=== PATIENT | male | born 1995 | race Caucasian/White ===

== ENCOUNTER 2017-07-21 19:37 | Emergency (ER) | payer OTHER ==
--- NOTE | 2017-07-21 20:33 | EDPHY ---
H & P Time Seen by Provider: 07/21/17 19:46 HPI/ROS: CHIEF COMPLAINT: Head injury HISTORY OF PRESENT ILLNESS: Patient is a 21-year-old male who presents emergency department after sustaining a head injury last week. He was skiing when he attempted a back flip in struck his head. It is unclear if he lost consciousness but he does state that he has had problems thinking after the incident. He has had a previous concussion. No nausea vomiting. No focal deficits. No neck or back pain. No abdominal pain. No chest pain. Patient's parents came to visit the night. Patient reports that he is drank numerous alcoholic beverages prior to their arrival. He now appeared intoxicated to his parents. They brought him to the emergency department for further evaluation. REVIEW OF SYSTEMS: My complete review of systems is negative except as mentioned in the HPI. Past Medical/Surgical History: Previous concussion Social history: The patient drinks alcohol. He smokes marijuana. He is a student at [employer]. Smoking Status: Never smoked Physical Exam: Vitals noted GENERAL: No acute distress, alert. Intoxicated appearing HEAD: No evidence of trauma. EYES: PERRLA, EOMI, normal to inspection. ENT: Airway intact, no dental or oral injury, no malocclusion, no hemotympanum , normal external examination. NECK: The trachea is midline. There is no crepitus. The C-spine is nontender. RESPIRATORY: Clear to auscultation bilaterally, no rales, rhonchi or wheezing. There is no crepitus or palpable rib fractures. CVS: Regular rate and rhythm, no rubs, murmurs, or gallops. ABDOMEN: Soft, nontender, nondistended, normal bowel sounds, no bruising or abrasions. Pelvis: Stable. No tenderness palpation. Hips full range of motion. BACK: Normal to inspection, no spinal tenderness, no spinal step off, no notable bruising or abrasions. SKIN: Normal color, warm, dry. No pallor or diaphoresis. EXTREMITIES: Right upper extremity: Atraumatic. No visible signs of trauma. No tenderness palpation. Neurovascular intact distally. Left upper extremity: Atraumatic. No visible signs of trauma. No tenderness palpation. Neurovascular intact distally. Right lower extremity: Atraumatic. No visible signs of trauma. No tenderness palpation. Neurovascular intact distally. Left lower extremity: Atraumatic. No visible signs of trauma. No tenderness palpation. Neurovascular intact distally. NEURO/PSYCH: Alert and oriented x 3, GCS 15, intoxicated, normal motor sensory exam. Constitutional: Initial Vital Signs Temperature (C) 36.6 C 07/21/17 19:43 Heart Rate 138 H 07/21/17 19:43 Respiratory Rate 20 07/21/17 19:43 Blood Pressure 131/89 H 07/21/17 19:43 O2 Sat (%) 98 07/21/17 19:43 Allergies/Adverse Reactions: No Known Allergies Allergy (Unverified 07/21/17 19:43) Home Medications: Medication Instructions Recorded NK [No Known Home Meds] 07/21/17 Medical Decision Making - Diagnostics Imaging Results: Imaging Impressions Head CT 07/21/17 20:10 Impression: No acute intracranial findings. Findings discussed with AVRIL GUERRA 07/21/2017 at 20:38. ED Course/Re-evaluation: In the emergency department I discussed possible etiologies with the patient and father. I answered all her questions. Head CT was ordered. Laboratory studies were ordered. 840: Head CT. Please refer the dictated report by the radiologist. I discussed case with Dr. Wagoner. No acute disease noted. CBC shows a mild anemia. Chemistry panel is unremarkable. Alcohol is 333. I discussed the results with the patient and his father. I discussed the diagnosis of concussion and gave concussion precautions. Father feels comfortable taking the patient home. He is given warnings prior to leaving. He will return with worsening symptoms. His father will stay with him. Differential Diagnosis: My differential includes but is not limited to alcohol intoxication, concussion , subarachnoid hemorrhage, subdural hematoma, epidural hematoma, drug use - Data Points Laboratory Results: Laboratory Results 07/21/17 20:10 07/21/17 20:10 07/21/17 07/21/17 20:10 20:10 WBC 5.91 10^3/uL 10^3/uL (3.80-9.50) RBC 3.91 10^6/uL L 10^6/uL (4.40-6.38) Hgb 15.1 g/dL g/dL (13.7-17.5) Hct 39.6 % L % (40.0-51.0) MCV 101.3 fL H fL (81.5-99.8) MCH 38.6 pg H pg (27.9-34.1) MCHC 38.1 g/dL H g/dL (32.4-36.7) RDW 11.4 % L % (11.5-15.2) Plt Count 196 10^3/uL 10^3/uL (150-400) MPV 10.0 fL fL (8.7-11.7) Neut % (Auto) 38.2 % L % (39.3-74.2) Lymph % (Auto) 51.4 % H % (15.0-45.0) [place]andt % (Auto) 7.6 % % (4.5-13.0) Eos % (Auto) 1.7 % % (0.6-7.6) Baso % (Auto) 0.8 % % (0.3-1.7) Nucleat RBC Rel Count 0.0 % % (0.0-0.2) Absolute Neuts (auto) 2.25 10^3/uL 10^3/uL (1.70-6.50) Absolute Lymphs (auto) 3.04 10^3/uL H 10^3/uL (1.00-3.00) Absolute Monos (auto) 0.45 10^3/uL 10^3/uL (0.30-0.80) Absolute Eos (auto) 0.10 10^3/uL 10^3/uL (0.03-0.40) Absolute Basos (auto) 0.05 10^3/uL 10^3/uL (0.02-0.10) Absolute Nucleated RBC 0.00 10^3/uL 10^3/uL (0-0.01) Immature Gran % 0.3 % % (0.0-1.1) Immature Gran # 0.02 10^3/uL 10^3/uL (0.00-0.10) Sodium 145 mEq/L mEq/L (135-145) Potassium 3.8 mEq/L mEq/L (3.5-5.2) Chloride 107 mEq/L mEq/L (97-110) Carbon Dioxide 21 mEq/l L mEq/l (22-31) Anion Gap 17 mEq/L H mEq/L (8-16) BUN 12 mg/dL mg/dL (7-23) Creatinine 0.9 mg/dL mg/dL (0.7-1.3) Estimated GFR > 60 Glucose 92 mg/dL mg/dL (70-100) Calcium 9.3 mg/dL mg/dL (8.5-10.4) Ethyl Alcohol 333 mg/dL H mg/dL (0-10) Departure - Departure Disposition: Home, Routine, Self-Care Clinical Impression: Head injury Qualifiers: Encounter type: initial encounter Qualified Code(s): S09.90XA - Unspecified injury of head, initial encounter Alcohol intoxication Qualifiers: Complication of substance-induced condition: uncomplicated Qualified Code(s): F10.920 - Alcohol use, unspecified with intoxication, uncomplicated Condition: Good Instructions: Head Injury (ED), Alcohol Intoxication (ED), Concussion (ED) Additional Instructions: Return to the emergency department increasing headache, weakness, numbness recurrent vomiting or any other concerns. You should avoid alcohol and marijuana post head injury. Referrals: [facility],. [Clinic] - 3-4 days, if not improved
[2017-07-21 20:49] LABS: PLATELET COUNT 196 10^3/uL (150-400)
[2017-07-21 21:10] VITALS: BP 123/65; PULSE 98; RESP 16; TEMP 98.1; O2SAT 97
== END 2017-07-21 21:06 | disposition home or self-care (01) ==
DX: S09.90XA Unspecified injury of head, initial encounter (principal); F10.920 Alcohol use, unspecified with intoxication, uncomplicated; V00.328A Other snow-ski accident, initial encounter; Y93.23 Activity, snow (alpine) (downhill) skiing, snowboarding, sledding, tobogganing and snow tubing
CPT/HCPCS: G0480